=== PATIENT | female | born 1995 | race African-American/Black ===

== ENCOUNTER 2017-11-04 09:43 | Emergency (ER) | payer OTHER ==
[~2017-11-04 09:43] MED LIST: 8 HO650T2 PO; FLUC150T PO; METH750T2 PO; METR500I3 PO; NAPR40TA PO; NAPR500 PO; NORC5TAB PO
[2017-11-04 09:45] VITALS: BP 125/69; PULSE 86; RESP 12; TEMP 98.1; O2SAT 99
[2017-11-04] MEDS ORDERED: DIFL150T PO (10:13)
--- NOTE | 2017-11-04 10:21 | PD ---
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 This patient complains of vaginal discharge. She has some vaginal itching. She is concerned of yeast infection. She describes it as thick and clumped. No fever. PFSH Past Medical History Bipolar Disorder: Yes Anxiety: Yes Depression: Yes Cardiovascular Problems: Yes (PREV HIGH CHOLESTEROL) High Cholesterol: Yes Diminished Hearing: No Psychiatric: Yes Tetanus Vaccination: Unknown Influenza Vaccination: No ?: Unknown LMP: IN DEC. UNKNOWN DATE Social History Alcohol Use: Yes (SOCIALLY) Tobacco Use: No Substance Use: Yes (MARIJUANA) Allergies-Medications (Allergen,Severity, Reaction): Coded Allergies: penicillin G (Unverified Allergy, Unknown, 11/04/17) Reported Meds & Prescriptions Reported Meds & Active Scripts Active Diflucan (Fluconazole) 150 Mg Tab 150 Mg PO ONCE Review of Systems General / Constitutional: No: Fever HENT: No: Headaches Cardiovascular: No: Chest Pain or Discomfort Physical Exam Narrative GASTROINTESTINAL: Abdomen soft, non-tender, nondistended. Positive bowel sounds. No hepato-splenomegaly, or palpable masses. No guarding. SKIN: Focused skin assessment reveals no rash or ulcers. Skin is warm and dry. Palpation shows no induration or nodules. Pelvic: Speculum exam was done. GC chlamydia swabs sent. On clinical basis this is yEast infection Data Data Last Documented VS Vital Signs Date Time Temp Pulse Resp B/P (MAP) Pulse Ox O2 Delivery O2 Flow Rate FiO2 11/04/17 09:45 98.1 86 12 125/69 (87) 99 Orders Orders Gc And Chlamydia Pcr (11/04/17 10:14) MDM Medical Decision Making Medical Screen Exam Complete: Yes Emergency Medical Condition: Yes Medical Record Reviewed: Yes Differential Diagnosis Vaginitis, cervicitis, PID Narrative Course I have reviewed the patient's electronic medical record. She requested Diflucan and I written her prescription for a dose The patient was advised to follow up with their physician and return if they worsen. Diagnosis Primary Impression: Vaginal candidiasis Additional Instructions: The patient was advised to follow up with their physician and return if they worsen. Med/Other Pt SpecificInfo: Prescription(s) given Scripts Fluconazole (Diflucan) 150 Mg Tab 150 MG PO ONCE for Infection, #1 TAB 0 Refills Prov: Be Short MD 11/04/17 Disposition: 01 DISCHARGE HOME Condition: Stable Be Short MD Nov 04, 2017 10:21
== END 2017-11-04 10:52 | disposition home or self-care (01) ==
LOC: NEPD 09:43
DX: B37.3 Candidiasis of vulva and vagina (principal); F31.9 Bipolar disorder, unspecified; F41.9 Anxiety disorder, unspecified; E78.00 Pure hypercholesterolemia, unspecified; Z88.0 Allergy status to penicillin
CPT/HCPCS: 87491; 87591; 99283

== ENCOUNTER 2017-11-23 17:35 | Emergency (ER) | payer OTHER ==
[~2017-11-23] VITALS: Ht 175.3 cm; Wt 81.5 kg
[~2017-11-23 17:35] MED LIST changes: -8 HO650T2 PO; +DIFL150T PO; -FLUC150T PO; -METH750T2 PO; -METR500I3 PO; -NAPR40TA PO; -NAPR500 PO; -NORC5TAB PO
[2017-11-23 17:36] VITALS: BP 142/84; PULSE 99; RESP 18; TEMP 101; O2SAT 99
[2017-11-23] MEDS ORDERED: NORE-76 PO (17:53)
[2017-11-23] MEDS ORDERED: OSEL75 PO (18:10)
--- NOTE | 2017-11-23 18:14 | PD ---
HPI Chief Complaint: Cold / Flu Symptoms Time Seen by Provider: 17:54 Travel History International Travel<30 days: No Contact w/Intl Traveler<30days: No Traveled to known affect area: No History of Present Illness HPI 22-year-old Afro-Mexican female presents the emergency with sudden onset fever , chills, cough, headache, sore throat, postnasal drip, rhinitis, and body aches. Patient states started yesterday evening and worsened through today. Patient has had nausea but no vomiting and some mild diarrhea today. She denies urinary symptoms. She denies . Her chief complaint is headache and body aches. Her pain Currently is about 8 out of 10. Patient has positive exposure to flu. Patient has allergies to penicillin. PFSH Past Medical History Bipolar Disorder: Yes Anxiety: Yes Depression: Yes Cardiovascular Problems: Yes (PREV HIGH CHOLESTEROL) High Cholesterol: Yes Diminished Hearing: No Psychiatric: Yes ?: Not Social History Alcohol Use: Yes (SOCIALLY) Tobacco Use: No Substance Use: Yes (MARIJUANA) Allergies-Medications (Allergen,Severity, Reaction): Coded Allergies: penicillin G (Unverified Allergy, Unknown, 11/23/17) Reported Meds & Prescriptions Reported Meds & Active Scripts Active Tamiflu (Oseltamivir Phosphate) 75 Mg Cap 75 Mg PO BID 5 Days Reported Mibelas 24 Fe Chewable Tablet (Norethindrone-E.estradiol-Iron) 1 Mg-20 Mcg (24)/ 75 Mg (4) Tab.chew 1 Tab PO HS Review of Systems Except as stated in HPI: all other systems reviewed are Neg General / Constitutional: Positive: Fever, Chills Eyes: Positive: Photophobia, No: Diploplia, Blurred Vision, Drainage, Redness, Foreign Body Sensation, Pain, Tearing, Visual changes HENT: Positive: Headaches, Sore Throat, Rhinitis, Rhinorrhea, Congestion, No: Vertigo, Lightheadedness, Nosebleed, Neck Stiffness, Neck Pain, Dental Difficulties, Earache Cardiovascular: No: Chest Pain or Discomfort Respiratory: Positive: Cough, No: Shortness of Breath, Wheezing, Sneezing Gastrointestinal: Positive: Nausea, No: Vomiting, Diarrhea, Abdominal Pain Genitourinary: No: Urgency, Frequency, Dysuria Musculoskeletal: No: Pain Skin: No Rash Neurologic: No: Weakness Psychiatric: No: Depression Endocrine: No: Polydipsia Hematologic/Lymphatic: No: Easy Bruising Physical Exam Narrative GENERAL: Patient appears ill but not septic. SKIN: Warm and dry. Normal color. Normal turgor. HEAD: Atraumatic. Normocephalic. EYES: Pupils equal and round. No scleral icterus. No injection or drainage. ENT: No nasal bleeding, but moderate clear nasal discharge. Mucous membranes pink and moist. Pharynx is clear. Airway is patent. NECK: Trachea midline. Supple and nontender CARDIOVASCULAR: Regular rate and rhythm. RESPIRATORY: No accessory muscle use. Clear to auscultation. Breath sounds equal bilaterally. GASTROINTESTINAL: Abdomen soft, non-tender, nondistended. Hepatic and splenic margins not palpable. MUSCULOSKELETAL: Extremities without clubbing, cyanosis, or edema. No obvious deformities. NEUROLOGICAL: Awake and alert. No obvious cranial nerve deficits. Motor grossly within normal limits. Five out of 5 muscle strength in the arms and legs. Normal speech. PSYCHIATRIC: Appropriate mood and affect; insight and judgment normal. Data Data Last Documented VS Vital Signs Date Time Temp Pulse Resp B/P (MAP) Pulse Ox O2 Delivery O2 Flow Rate FiO2 11/23/17 17:36 101.0 99 18 142/84 (103) 99 Orders Orders Ibuprofen (Motrin) (11/23/17 18:15) [facility] Medical Decision Making Medical Screen Exam Complete: Yes Emergency Medical Condition: Yes Differential Diagnosis Febrile illness. Myalgias. Influenza. Narrative Course Patient to be treated empirically with Tamiflu 75 mg twice a day 5 days. Patient will continue on ibuprofen 800 mg 3 times daily #30. Patient is to rest, push fluids, and work note is given for the next 4 days. Patient follow up if symptoms worsen as needed. Diagnosis Primary Impression: Influenza Patient Instructions: General Instructions, Influenza (DC) Departure Forms: Work Release Enter return to work date: Nov 27, 2017 Additional Instructions: Patient to be treated empirically with Tamiflu 75 mg twice a day 5 days. Patient will continue on ibuprofen 800 mg 3 times daily #30. Patient is to rest, push fluids, and work note is given for the next 4 days. Patient follow up if symptoms worsen as needed. Med/Other Pt SpecificInfo: Prescription(s) given Scripts Oseltamivir (Tamiflu) 75 Mg Cap 75 MG PO BID for Mgmt Viral Infection for 5 Days, #10 CAP 0 Refills Prov: Dipak Maldonado MD 11/23/17 Disposition: 01 DISCHARGE HOME Condition: Stable Juan C Srinivasan Nov 23, 2017 18:14
[2017-11-23] MEDS: IBUPROFEN 800 MG TAB PO ONE ×2 (18:23→18:25)
[2017-11-23] MEDS ORDERED: OSEL60SU PO (19:12)
== END 2017-11-23 19:15 | disposition home or self-care (01) ==
LOC: NEPK 17:35
DX: J11.1 Influenza due to unidentified influenza virus with other respiratory manifestations (principal); R51 Headache; F31.9 Bipolar disorder, unspecified; E78.00 Pure hypercholesterolemia, unspecified; F12.90 Cannabis use, unspecified, uncomplicated
CPT/HCPCS: 99283

== ENCOUNTER 2017-12-30 16:38 | Emergency (ER) | payer OTHER ==
[~2017-12-30] VITALS: Ht 177.8 cm; Wt 86.0 kg
[~2017-12-30 16:38] MED LIST changes: -DIFL150T PO; +NORE-76 PO; +OSEL60SU PO
[2017-12-30 16:47] VITALS: BP 164/94; PULSE 107; RESP 16; TEMP 98.5; O2SAT 100
[2017-12-30 19:11] LABS: BACTERIA, URINE RARE /hpf; BILIRUBIN, URINE NEG (NEG); BLOOD, URINE NEG (NEG); GLUCOSE,URINE NEG (NEG); KETONE, URINE NEG (NEG); MUCUS URINE MOD /lpf (OCC); NITRITE,URINE NEG (NEG); PH, URINE 5.5 (5.0-8.5); SQUAMOUS EPITHELIAL CELL URINE 3 /hpf (0-5); URINE COLOR YELLOW (YELLW/STRAW); URINE LEUKOCYTE ESTERASE NEG (NEG)
[2017-12-30] MEDS ORDERED: DIFL150T PO (19:34)
--- NOTE | 2017-12-30 19:34 | PD ---
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 She says the bumps are not tender and she does not think they are herpes. She often waxes or shaves her pubic hair, but recently she has used nare. She says she is prone to yeast infections and has had a lot of itching. She is is been going on for the past week. She has not taken anything for her symptoms. Severity is mild. PFSH Past Medical History Anemia: Yes Bipolar Disorder: Yes Anxiety: Yes Depression: Yes Cardiovascular Problems: Yes (PREV HIGH CHOLESTEROL) High Cholesterol: Yes Diminished Hearing: No Psychiatric: Yes Tetanus Vaccination: Unknown Influenza Vaccination: No ?: Unknown LMP: 12/10/17 Social History Alcohol Use: Yes (SOCIALLY) Tobacco Use: No Substance Use: Yes (MARIJUANA) Allergies-Medications (Allergen,Severity, Reaction): Coded Allergies: penicillin G (Unverified Allergy, Unknown, 12/30/17) Reported Meds & Prescriptions Reported Meds & Active Scripts Active Reported Mibelas 24 Fe Chewable Tablet (Norethindrone-E.estradiol-Iron) 1 Mg-20 Mcg (24)/ 75 Mg (4) Tab.chew 1 Tab PO HS Review of Systems General / Constitutional: No: Fever, Chills HENT: No: Headaches, Lightheadedness Cardiovascular: No: Chest Pain or Discomfort Respiratory: No: Shortness of Breath Gastrointestinal: Positive: Abdominal Pain, No: Nausea, Vomiting Genitourinary: Positive: Discharge, No: Dysuria, Vaginal Bleeding Skin: Positive Lesions Neurologic: No: Weakness, Dizziness Physical Exam Narrative GENERAL: Awake and alert, in no acute distress. SKIN: Focused skin assessment warm/dry. HEAD: Atraumatic. Normocephalic. EYES: Pupils equal and round. No scleral icterus. ENT: Mucous membranes pink and moist. CARDIOVASCULAR: Regular rate and rhythm. No murmur appreciated. RESPIRATORY: No accessory muscle use. Clear to auscultation. Breath sounds equal bilaterally. GASTROINTESTINAL: Abdomen soft, non-tender, nondistended. : Exam performed in the presence of a nurse. Irritate hair follicle above the vagina, no evidence of infection or ulcerations. Thick white discharge. No CMT. MUSCULOSKELETAL: No obvious deformities. No clubbing. No cyanosis. No edema. NEUROLOGICAL: Awake and alert. No obvious cranial nerve deficits. Motor grossly within normal limits. Normal speech. Data Data Last Documented VS Vital Signs Date Time Temp Pulse Resp B/P (MAP) Pulse Ox O2 Delivery O2 Flow Rate FiO2 12/30/17 16:47 98.5 107 16 164/94 (117) 100 Orders Orders Urinalysis - C+S If Indicated (12/30/17 18:21) Ed Urine Pregnancytest Poc (12/30/17 18:21) Wet Prep Profile (12/30/17 18:21) Gc And Chlamydia Pcr (12/30/17 18:21) Labs Laboratory Tests Test 12/30/17 18:30 12/30/17 18:38 Urine Color YELLOW Urine Turbidity CLEAR Urine pH 5.5 Urine Specific [place] 1.032 Urine Protein TRACE mg/dL Urine Glucose (UA) NEG mg/dL Urine Ketones NEG mg/dL Urine Occult Blood NEG Urine Nitrite NEG Urine Bilirubin NEG Urine Urobilinogen LESS THAN 2.0 MG/DL Urine Leukocyte Esterase NEG Urine RBC LESS THAN 1 /hpf Urine WBC 1 /hpf Urine Squamous Epithelial Cells 3 /hpf Urine Bacteria RARE /hpf Urine Mucus MOD /lpf Microscopic Urinalysis Comment CULT NOT INDICATED Clue Cells (Wet Prep) NONE SEEN Vaginal Trichomonas (Wet Prep) NONE SEEN Vaginal Yeast (Wet Prep) NONE SEEN MDM Medical Decision Making Medical Screen Exam Complete: Yes Emergency Medical Condition: Yes Medical Record Reviewed: Yes Differential Diagnosis BV versus yeast infection versus UTI versus GC/chlamydia Narrative Course Patient is a 22-year-old female who comes in complaining of vaginal discharge and itchiness as well as bumps around her vagina. Exam is consistent with an irritated hair follicle, patient is advised to stop using air. Exam also concerning for candidiasis. Patient will be given prescription for Diflucan. Advised to follow-up with gynecology, she has an appointment on January 04. Advised to return anytime for any worsening symptoms. Diagnosis Primary Impression: Vaginal candidiasis Patient Instructions: General Instructions, Vulvovaginal Candidiasis (ED) Additional Instructions: Take the Diflucan. Follow-up with gynecology. Return to the ED as needed for any worsening symptoms. Scripts Fluconazole (Diflucan) 150 Mg Tab 150 MG PO ONCE for Infection, #1 TAB 0 Refills Prov: Radha Ribeiro MD 12/30/17 Disposition: 01 DISCHARGE HOME Condition: Stable Radha Ribeiro MD Dec 30, 2017 19:34
== END 2017-12-30 20:02 | disposition home or self-care (01) ==
LOC: NEPD 16:38
DX: B37.3 Candidiasis of vulva and vagina (principal); D64.9 Anemia, unspecified; F31.9 Bipolar disorder, unspecified; F41.9 Anxiety disorder, unspecified; E78.00 Pure hypercholesterolemia, unspecified; Z88.0 Allergy status to penicillin
CPT/HCPCS: 81001; 84703; 87210; 87491; 87591; 99283

== ENCOUNTER 2018-03-22 15:08 | Emergency (ER) | payer OTHER ==
[~2018-03-22] VITALS: Ht 175.3 cm; Wt 85.0 kg
[~2018-03-22 15:08] MED LIST changes: +DIFL150T PO; -OSEL60SU PO
[2018-03-22 15:34] VITALS: BP 156/67; PULSE 83; RESP 24; TEMP 99.1; O2SAT 100
--- NOTE | 2018-03-22 15:49 | PD ---
HPI Chief Complaint: Cold / Flu Symptoms Time Seen by Provider: 15:39 Travel History International Travel<30 days: No Contact w/Intl Traveler<30days: No Traveled to known affect area: No History of Present Illness HPI 22-year-old female presents to the emergency department for 2 separate issues. Patient reports cold symptoms for 2 days. She reports fevers, cough, congestion , sore throat. Patient states she did run a fever of 102 yesterday. She took ibuprofen yesterday. She has not had any fever or taking anything for fever today. Patient also states that she is having vaginal odor and discomfort. She reports history of vaginal candidiasis and thinks that she is having this again. She denies any new sexual partners or risk of STDs. Patient states that she is not currently on control does not believe she is , but could be. Patient denies abdominal pain. No nausea, vomiting, diarrhea. She has no chronic medical problems and takes no prescribed medications. Mild severity. PFSH Past Medical History Anemia: Yes Bipolar Disorder: Yes Anxiety: Yes Depression: Yes Cardiovascular Problems: Yes (PREV HIGH CHOLESTEROL) High Cholesterol: Yes Diminished Hearing: No Psychiatric: Yes ?: Not LMP: 03/06/18 Social History Alcohol Use: Yes (SOCIALLY) Tobacco Use: No Substance Use: Yes (MARIJUANA) Allergies-Medications (Allergen,Severity, Reaction): Coded Allergies: penicillin G (Unverified Allergy, Unknown, 03/22/18) Reported Meds & Prescriptions Reported Meds & Active Scripts Active Diflucan (Fluconazole) 150 Mg Tab 150 Mg PO ONCE Reported Mibelas 24 Fe Chewable Tablet (Norethindrone-E.estradiol-Iron) 1 Mg-20 Mcg (24)/ 75 Mg (4) Tab.chew 1 Tab PO HS Review of Systems Except as stated in HPI: all other systems reviewed are Neg Physical Exam Narrative GENERAL: Well-nourished, well-developed female patient, afebrile. SKIN: Focused skin assessment warm/dry. HEAD: Normocephalic. Atraumatic. ENT: Mucosa pink and moist. No erythema or exudates. No uvular edema. No uvular , palatal, or tonsillar deviation. Airway patent. Nasal turbinates appear normal without nasal blood, purulent drainage or septal hematoma. Bilateral tympanic membranes clear without erythema or perforation. EYES: No scleral icterus. No injection or drainage. NECK: Supple, trachea midline. No JVD or lymphadenopathy. CARDIOVASCULAR: Regular rate and rhythm without murmurs, gallops, or rubs. RESPIRATORY: Breath sounds equal bilaterally. No accessory muscle use. Lung sounds are clear to auscultation. GASTROINTESTINAL: Abdomen soft, non-tender, nondistended. MUSCULOSKELETAL: No cyanosis, or edema. BACK: Nontender without obvious deformity. No CVA tenderness. GENITOURINARY: Normal external genitalia without lesions or erythema. Vaginal vault without blood, minimal white drainage. Cervical os was closed without drainage. No cervical motion tenderness. Uterus nontender and nonenlarged. Bilateral adnexa nontender without masses. This exam was done with JOSE L Saleh at bedside. Data Data Last Documented VS Vital Signs Date Time Temp Pulse Resp B/P (MAP) Pulse Ox O2 Delivery O2 Flow Rate FiO2 03/22/18 15:34 99.1 83 24 156/67 (96) 100 Orders Orders Gc And Chlamydia Pcr (03/22/18 15:45) Wet Prep Profile (03/22/18 15:45) Urinalysis - C+S If Indicated (03/22/18 15:45) Ed Urine Pregnancytest Poc (03/22/18 15:45) Influenzae A/B Antigen (03/22/18 15:45) Labs Laboratory Tests Test 03/22/18 16:00 03/22/18 16:28 Urine Color YELLOW Urine Turbidity CLEAR Urine pH 6.0 Urine Specific [place] 1.021 Urine Protein NEG mg/dL Urine Glucose (UA) NEG mg/dL Urine Ketones NEG mg/dL Urine Occult Blood NEG Urine Nitrite NEG Urine Bilirubin NEG Urine Urobilinogen LESS THAN 2.0 MG/DL Urine Leukocyte Esterase NEG Urine RBC 2 /hpf Urine WBC 1 /hpf Urine Squamous Epithelial Cells 5 /hpf Urine Mucus FEW /lpf Microscopic Urinalysis Comment CULT NOT INDICATED Clue Cells (Wet Prep) NS Vaginal Trichomonas (Wet Prep) NS Vaginal Yeast (Wet Prep) NS MDM Medical Decision Making Medical Screen Exam Complete: Yes Emergency Medical Condition: Yes Medical Record Reviewed: Yes Differential Diagnosis Viral URI versus influenza versus UTI versus vaginal candidiasis versus cervicitis Narrative Course 22-year-old female presents to the emergency department for 2 separate issues. First, the patient reports cold symptoms for 2 days. She also reports vaginal discomfort and foul odor with history of vaginal candidiasis. Influenza, UA, urine test, swab for gonorrhea/chlamydia and wet prep profile ordered and pending. Influenza is negative. UA is negative for acute infection. UPT is negative. Wet prep is negative. Patient will be discharged a prescription for fluconazole she states that this is consistent with the previous yeast infection. 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 The patient was discharged in stable condition with instructions, including return instructions and follow up instructions. Diagnosis Primary Impression: Viral upper respiratory infection Additional Impression: Vaginal discharge Referrals: Impregnator Primary Care Physician Patient Instructions: General Instructions, Upper Respiratory Infection (ED), Vaginal Discharge (ED) Departure Forms: Tests/Procedures, Work Release Enter return to work date: March 24, 2018 Additional Instructions: Rest. Drink plenty of fluids [id number] Tylenol/ibuprofen as needed. Take Diflucan as directed. Follow-up with a primary care physician. Return to the emergency department for any acute worsening of symptoms. Med/Other Pt SpecificInfo: Prescription(s) given Scripts Fluconazole (Diflucan) 150 Mg Tab 150 MG PO ONCE for Infection, #1 TAB 0 Refills Prov: Nadeen Shoemaker 03/22/18 Disposition: DISCHARGE HOME Condition: Stable Nadeen Shoemaker March 22, 2018 15:49
[2018-03-22] MEDS ORDERED: DIFL150T PO (17:15)
[2018-03-22 17:18] LABS: BILIRUBIN, URINE NEG (NEG); BLOOD, URINE NEG (NEG); GLUCOSE,URINE NEG (NEG); KETONE, URINE NEG (NEG); MUCUS URINE FEW /lpf (OCC); NITRITE,URINE NEG (NEG); SQUAMOUS EPITHELIAL CELL URINE 5 /hpf (0-5); URINE COLOR YELLOW (YELLW/STRAW); URINE LEUKOCYTE ESTERASE NEG (NEG)
== END 2018-03-22 17:31 | disposition home or self-care (01) ==
LOC: NEPK 15:08
DX: J06.9 Acute upper respiratory infection, unspecified (principal); N89.8 Other specified noninflammatory disorders of vagina; J02.9 Acute pharyngitis, unspecified; D64.9 Anemia, unspecified; Z88.0 Allergy status to penicillin
CPT/HCPCS: 81001; 84703; 87210; 87491; 87591; 87804; 99283

== ENCOUNTER 2018-03-27 13:12 | Emergency (ER) | payer OTHER ==
[~2018-03-27] VITALS: Ht 175.3 cm; Wt 86.0 kg
[2018-03-27 13:57] VITALS: BP 125/67; PULSE 69; RESP 16; TEMP 97.9; O2SAT 99
--- NOTE | 2018-03-27 14:41 | PD ---
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 Patient was seen in the emergency room 4 days ago for this. Patient had a pelvic exam and her GC, chlamydia, trichomoniasis, chlamydia or yeast. She was still sent home on Diflucan which patient took and says her symptoms have not improved. She is here to be examined again. Bedside urine was negative. No pain. PFSH Past Medical History Narrative Medical List of her past medical, surgical, social and family history is reviewed from the nursing note. Anemia: Yes Bipolar Disorder: Yes Anxiety: Yes Depression: Yes Cardiovascular Problems: Yes (PREV HIGH CHOLESTEROL) High Cholesterol: Yes Diminished Hearing: No Psychiatric: Yes LMP: march 11, 2018 Social History Alcohol Use: Yes (SOCIALLY) Tobacco Use: No Substance Use: Yes (MARIJUANA) Allergies-Medications (Allergen,Severity, Reaction): Coded Allergies: penicillin G (Unverified Allergy, Unknown, 03/27/18) Comments List of her allergies reviewed from the nursing note. Reported Meds & Prescriptions Reported Meds & Active Scripts Active Diflucan (Fluconazole) 150 Mg Tab 150 Mg PO ONCE Reported Mibelas 24 Fe Chewable Tablet (Norethindrone-E.estradiol-Iron) 1 Mg-20 Mcg (24)/ 75 Mg (4) Tab.chew 1 Tab PO HS Narrative Medication List of her home medications reviewed from the nursing note. Review of Systems Except as stated in HPI: all other systems reviewed are Neg Genitourinary: Positive: Discharge Physical Exam Narrative GENERAL: Awake, alert, no obvious distress SKIN: Focused skin assessment warm/dry. HEAD: Atraumatic. Normocephalic. EYES: Pupils equal and round. No scleral icterus. No injection or drainage. ENT: No nasal bleeding or discharge. Mucous membranes pink and moist. NECK: Trachea midline. No JVD. CARDIOVASCULAR: Regular rate and rhythm. No murmur appreciated. RESPIRATORY: No accessory muscle use. Clear to auscultation. Breath sounds equal bilaterally. GASTROINTESTINAL: Abdomen soft, non-tender, nondistended. Hepatic and splenic margins not palpable. MUSCULOSKELETAL: No obvious deformities. No clubbing. No cyanosis. No edema. NEUROLOGICAL: Awake and alert. No obvious cranial nerve deficits. Motor grossly within normal limits. Normal speech. PSYCHIATRIC: Appropriate mood and affect; insight and judgment normal. Data Data Last Documented VS Vital Signs Date Time Temp Pulse Resp B/P (MAP) Pulse Ox O2 Delivery O2 Flow Rate FiO2 03/27/18 13:57 97.9 69 16 125/67 (86) 99 Orders Orders Urinalysis - C+S If Indicated (03/27/18 14:48) Ed Urine Pregnancytest Poc (03/27/18 14:48) Ed Discharge Order (03/27/18 16:28) Labs Laboratory Tests Test 03/27/18 15:00 Urine Color YELLOW Urine Turbidity CLEAR Urine pH 7.0 Urine Specific [place] 1.025 Urine Protein TRACE mg/dL Urine Glucose (UA) NEG mg/dL Urine Ketones NEG mg/dL Urine Occult Blood NEG Urine Nitrite NEG Urine Bilirubin NEG Urine Urobilinogen 2.0 MG/DL Urine Leukocyte Esterase NEG Urine RBC 3 /hpf Urine WBC 1 /hpf Urine Squamous Epithelial Cells 2 /hpf Microscopic Urinalysis Comment CULT NOT INDICATED MDM Medical Decision Making Medical Screen Exam Complete: Yes Emergency Medical Condition: Yes Medical Record Reviewed: Yes Differential Diagnosis UTI Narrative Course 4:32 PM UA is negative. Patient had a thorough COLLECTION ANALYST exam done 4 days ago which was negative. At this point I do not wish to repeat it again. She needs to see COLLECTION ANALYST specialist for further workup. I have expressed this to her verbally and on the discharge instructions. Patient will be discharged home Procedures EKG Prior to Arrival: No Diagnosis Primary Impression: Vaginal discharge Additional Instructions: Please follow-up with a COLLECTION ANALYST for your persistent vaginal discharge complains at this point. Disposition: 01 DISCHARGE HOME Condition: Stable Rebecca Mcghee MD March 27, 2018 14:41
[2018-03-27 16:05] LABS: BILIRUBIN, URINE NEG (NEG); BLOOD, URINE NEG (NEG); GLUCOSE,URINE NEG (NEG); KETONE, URINE NEG (NEG); NITRITE,URINE NEG (NEG); SQUAMOUS EPITHELIAL CELL URINE 2 /hpf (0-5); URINE COLOR YELLOW (YELLW/STRAW); URINE LEUKOCYTE ESTERASE NEG (NEG)
== END 2018-03-27 16:40 | disposition home or self-care (01) ==
LOC: NEPD 13:12
DX: N89.8 Other specified noninflammatory disorders of vagina (principal); F12.90 Cannabis use, unspecified, uncomplicated
CPT/HCPCS: 81001; 84703; 99283